=== PATIENT | male | born 1945 | race Caucasian/White ===

== ENCOUNTER → 2016-05-18 | Outpatient (CLI) | payer MEDICARE ==
[~2016-05-18] MED LIST: 00186-0370-20 IH; ACCOLATE 220 MG/1 TA PO; ALBUTEROL SULFAT3 M3 IH; ALBUTEROL0.63 MG/3 IH; ALLEGRA-D 12 HO1 TER PO; AMLODIPINE10 MG PO; AMOXICILLIN 8751 TAB PO; BACTRIM DS 8001 TAB PO; CATAFLAM50 MG PO; CENTRUM SILVER1 CTB PO; CENTRUM SILVER1 TAB PO; CIPRO 250MG TA250 MG PO; CIPRO 500MG TA500 MG PO; COLACE 100100 MG/CAP PO; COMBIVENT INH14.7 GM IH; DARVOCET-N-101 UDTAB PO; DAZIDOX10 MG PO; DETROL LA4 PO; DICLOFENAC SOD50 MG PO; DITROPAN 5MG TAB5 MG PO; DOXYCYCLINE 10100 MG PO; DULCOLAX S10 MG/SUPP RC; ERY-TAB500 MG PO; FERROUS SULFATE65 MG PO; FLEXERIL 1010 MG/TAB PO; FLEXERIL10 MG PO; FLOMAX 0.40.4 MG/CAP PO; FLUTICASON0.05 MG/Ac NS; GLUCOSAMINE/CHONDROI; HYTRIN 5MG C5 MG/CAP PO; LASIX 40MG TABL40 MG PO; LISINOPRIL20 MG PO; MAGNESIUM200 MG PO; MILK OF MA400 MG/52 PO; MS CONTIN 115 MG/TAB PO; MUCUS RELIEF400 M1 PO; MULTIPLE VITAMI1 CAP PO; MULTIVITAMIN FO1 CAP PO; NEURONTIN600 MG/TAB PO; NORCO 325 MG-51 TAB PO; NORVASC 10MG10 MG PO; NORVASC10 MG PO; OMEPRAZOLE DR20 MG PO; PERCOCET 325 MG1 TA2 PO; PERCOCET 325 MG1 TA3 PO; PREDNISONE10 MG PO; PREDNISONE20 M1 PO; PREDNISONE20 MG PO; PRILOSEC 20MG20 MG PO; PRILOTC PO; PRINIVIL20 MG PO; QUININE SULFAT324 MG PO; RT ALBUTER2.5 MG/0.5 IH; SENOKOT S 50 MG1 TAB PO; ST. JOSEPH81 M2 PO; SYNTHROID0.05 MG/TA PO; TERAZOSIN HCL; TERAZOSIN HCL PO; TERAZOSIN5 MG PO; ULTRAM 50MG TAB50 MG PO; VALIUM 5MG T5 MG/TAB PO; VENTOLIN0.09 MG IH; VESICARE; VESICARE 5MG5 MG PO; VESICARE5 MG PO; VITAMIN B-6100 MG PO; VITAMIN C500 MG PO; VITAMIN D32000 IU PO; VITAMINS; VITRON-C; VITRON-C PO; VOLTAREN 50MG T50 MG PO; VOLTAREN50 MG PO; XOPENEX HF0.045 MG/A IH; ZAFIRLUKAST20 MG PO; ZESTRIL 20MG TA20 MG PO; ZESTRIL40 MG PO; ZYLOPRIM 100MG100 MG PO
== END ==
LOC: WCC 08:44
DX: I87.2 Venous insufficiency (chronic) (peripheral) (principal); L97.519 Non-pressure chronic ulcer of other part of right foot with unspecified severity

== ENCOUNTER → 2016-05-25 | Outpatient (CLI) | payer MEDICARE | LOC: WCC 09:49 | DX: I87.8 Other specified disorders of veins (principal); L97.809 Non-pressure chronic ulcer of other part of unspecified lower leg with unspecified severity | CPT/HCPCS: G0463 ==

== ENCOUNTER → 2016-06-01 | Outpatient (CLI) | payer MEDICARE | LOC: WCC 10:17 | DX: I87.8 Other specified disorders of veins (principal); L97.519 Non-pressure chronic ulcer of other part of right foot with unspecified severity | CPT/HCPCS: G0463 ==

== ENCOUNTER → 2016-06-08 | Outpatient (CLI) | payer MEDICARE | LOC: WCC 12:49 | DX: I87.8 Other specified disorders of veins (principal) | CPT/HCPCS: 13919; G0463 ==

== ENCOUNTER → 2016-06-15 | Outpatient (CLI) | payer MEDICARE | LOC: WCC 11:15 | DX: I87.8 Other specified disorders of veins (principal); L97.519 Non-pressure chronic ulcer of other part of right foot with unspecified severity | CPT/HCPCS: 13919; G0463 ==

== ENCOUNTER → 2016-06-22 | Outpatient (CLI) | payer MEDICARE | LOC: WCC 08:17 | DX: I87.8 Other specified disorders of veins (principal); L97.819 Non-pressure chronic ulcer of other part of right lower leg with unspecified severity | CPT/HCPCS: 13919; 21064; A6021; G0463 ==

== ENCOUNTER → 2016-06-29 | Outpatient (CLI) | payer MEDICARE | LOC: WCC 08:20 | DX: I87.8 Other specified disorders of veins (principal); L97.919 Non-pressure chronic ulcer of unspecified part of right lower leg with unspecified severity; E66.9 Obesity, unspecified | CPT/HCPCS: G0463 ==

== ENCOUNTER → 2016-07-06 | Outpatient (CLI) | payer MEDICARE | LOC: WCC 08:49 | DX: I87.8 Other specified disorders of veins (principal); L97.919 Non-pressure chronic ulcer of unspecified part of right lower leg with unspecified severity | CPT/HCPCS: G0463 ==

== ENCOUNTER → 2016-07-13 | Outpatient (CLI) | payer MEDICARE | LOC: WCC 08:39 | DX: I87.2 Venous insufficiency (chronic) (peripheral) (principal); L97.919 Non-pressure chronic ulcer of unspecified part of right lower leg with unspecified severity | CPT/HCPCS: G0463 ==

== ENCOUNTER → 2016-07-20 | Outpatient (CLI) | payer MEDICARE | LOC: WCC 11:27 | DX: I87.2 Venous insufficiency (chronic) (peripheral) (principal); L97.919 Non-pressure chronic ulcer of unspecified part of right lower leg with unspecified severity; E66.9 Obesity, unspecified | CPT/HCPCS: 13919; 27510; A6197; G0463 ==

== ENCOUNTER → 2016-07-27 | Outpatient (CLI) | payer MEDICARE | LOC: WCC 08:50 | DX: I87.2 Venous insufficiency (chronic) (peripheral) (principal); L98.499 Non-pressure chronic ulcer of skin of other sites with unspecified severity | CPT/HCPCS: 13919; G0463 ==

== ENCOUNTER → 2016-08-03 | Outpatient (CLI) | payer MEDICARE | LOC: ZCOL.LAB 17:37 | DX: Z02.89 Encounter for other administrative examinations (principal) ==

== ENCOUNTER → 2016-08-03 | Outpatient (CLI) | payer MEDICARE | LOC: WCC 08:41 | DX: L97.919 Non-pressure chronic ulcer of unspecified part of right lower leg with unspecified severity (principal); I87.2 Venous insufficiency (chronic) (peripheral) | CPT/HCPCS: 13919; 27510; A6197; G0463 ==

== ENCOUNTER → 2016-08-07 | Outpatient (CLI) | payer MEDICARE | LOC: WCC 08:58 | DX: L97.919 Non-pressure chronic ulcer of unspecified part of right lower leg with unspecified severity (principal); I87.2 Venous insufficiency (chronic) (peripheral) | CPT/HCPCS: 13919; 13973; A6199; G0463 ==

== ENCOUNTER → 2016-08-17 | Outpatient (CLI) | payer MEDICARE | LOC: WCC 10:11 | DX: I87.2 Venous insufficiency (chronic) (peripheral) (principal); L97.909 Non-pressure chronic ulcer of unspecified part of unspecified lower leg with unspecified severity | CPT/HCPCS: 13919; 27510; A6197; G0463 ==

== ENCOUNTER → 2016-08-24 | Outpatient (CLI) | payer MEDICARE | LOC: WCC 12:21 | DX: I87.2 Venous insufficiency (chronic) (peripheral) (principal); L97.819 Non-pressure chronic ulcer of other part of right lower leg with unspecified severity; Z87.891 Personal history of nicotine dependence | CPT/HCPCS: 13919; 27510; 27517; A6197; A6207; G0463 ==

== ENCOUNTER → 2016-08-31 | Outpatient (CLI) | payer MEDICARE | LOC: WCC 09:36 | DX: I87.2 Venous insufficiency (chronic) (peripheral) (principal); L97.819 Non-pressure chronic ulcer of other part of right lower leg with unspecified severity; E66.9 Obesity, unspecified; Z87.891 Personal history of nicotine dependence | CPT/HCPCS: 13919; G0463 ==

== ENCOUNTER → 2016-09-07 | Outpatient (CLI) | payer MEDICARE | LOC: WCC 09:19 | DX: I87.2 Venous insufficiency (chronic) (peripheral) (principal); L97.819 Non-pressure chronic ulcer of other part of right lower leg with unspecified severity | CPT/HCPCS: 13919; G0463 ==

== ENCOUNTER 2016-09-10 10:01 | Outpatient (RCR) | payer MEDICARE ==
[~2016-09-10] VITALS: Ht 162.6 cm; Wt 109.0 kg
[2016-09-10 10:15] VITALS: BP 120/70; PULSE 72; TEMP 98
[2016-09-17 10:12] VITALS: BP 118/72; PULSE 77; TEMP 97.6
[2016-09-24 10:34] VITALS: BP 112/70; PULSE 102; TEMP 97.8
[2016-10-01 10:50] VITALS: BP 110/70; PULSE 79; TEMP 97.2
== END 2016-12-09 ==
LOC: WCC → EUO 10:01
DX: I87.2 Venous insufficiency (chronic) (peripheral) (principal)

== ENCOUNTER → 2016-10-09 | Outpatient (CLI) | payer MEDICARE | LOC: WCC 09:28 | DX: I87.311 Chronic venous hypertension (idiopathic) with ulcer of right lower extremity (principal); E66.9 Obesity, unspecified; Z87.891 Personal history of nicotine dependence | CPT/HCPCS: 13919; G0463 ==

== ENCOUNTER → 2016-10-16 | Outpatient (CLI) | payer MEDICARE | LOC: WCC 09:05 | DX: I87.2 Venous insufficiency (chronic) (peripheral) (principal); L97.819 Non-pressure chronic ulcer of other part of right lower leg with unspecified severity; L97.829 Non-pressure chronic ulcer of other part of left lower leg with unspecified severity; E66.9 Obesity, unspecified | CPT/HCPCS: 13919; 17717; A6212; G0463 ==

== ENCOUNTER → 2016-10-23 | Outpatient (CLI) | payer MEDICARE | LOC: WCC 10:01 | DX: I87.2 Venous insufficiency (chronic) (peripheral) (principal); L97.829 Non-pressure chronic ulcer of other part of left lower leg with unspecified severity; L97.819 Non-pressure chronic ulcer of other part of right lower leg with unspecified severity | CPT/HCPCS: 13919 ==

== ENCOUNTER → 2016-11-02 | Outpatient (CLI) | payer MEDICARE | LOC: WCC 12:50 | DX: I87.2 Venous insufficiency (chronic) (peripheral) (principal); I89.0 Lymphedema, not elsewhere classified; E66.9 Obesity, unspecified | CPT/HCPCS: G0463 ==

== ENCOUNTER → 2016-11-19 | Outpatient (CLI) | payer MEDICARE | LOC: WCC 14:28 | DX: L97.819 Non-pressure chronic ulcer of other part of right lower leg with unspecified severity (principal); I87.2 Venous insufficiency (chronic) (peripheral) | CPT/HCPCS: 13919; 18867; 27513; 27517; A6207; A6209; A6456; G0463 ==

== ENCOUNTER → 2016-11-27 | Outpatient (CLI) | payer MEDICARE | LOC: WCC 11:27 | DX: Z01.89 Encounter for other specified special examinations (principal) ==

== ENCOUNTER 2016-12-24 09:30 | Outpatient (RCR) | payer MEDICARE | END 2016-12-25 16:31 | LOC: WSPT 09:30 | DX: I89.0 Lymphedema, not elsewhere classified (principal); I87.2 Venous insufficiency (chronic) (peripheral); L97.819 Non-pressure chronic ulcer of other part of right lower leg with unspecified severity | CPT/HCPCS: G8978-GP; G8979-GP; G8980-GP ==

== ENCOUNTER 2018-06-27 17:53 | Emergency (ER) | payer MEDICARE ==
[~2018-06-27] VITALS: Ht 170.2 cm; Wt 113.6 kg
[~2018-06-27 17:53] MED LIST changes: +LEVAQUIN 5500 MG/TA1 PO; +MYRBETR50MG PO; +TEGRETOL 1100 MG/TAB PO
[2018-06-27 18:05] VITALS: TEMP 98.1
[2018-06-27 20:25] LABS: COLLECTION METHOD CLEAN CATCH
[2018-06-27 20:30] LABS: BASO % 0.4 % (0.0-2.0); EOS % 0.2 % (0-4.0); GRAN # 9.1 (1.4-6.5); HEMATOCRIT 49.2 % (42.0-52.0); HEMOGLOBIN 16.2 g/dl (13.5-18.0); LYMPH # 1.3 (1.2-3.4); LYMPH % 11.9 % (20.0-51.0); MEAN CELL VOLUME 86 fl (80.0-100.0); MEAN CORPUSCULAR HEMOGLOBIN 28 pg (27.0-31.0); MEAN CORPUSCULAR HGB CONC 33 g/dl (33.0-37.0); MEAN PLATELET VOLUME 10.6 fl (7.4-10.4); MONO # 0.4 (0.1-0.6); MONO % 3.2 % (1.7-9.3); PLATELET COUNT 331 K/mm3 (130-400); RED BLOOD COUNT 5.74 M/mm3 (4.20-5.60); REDCELL DISTRIBUTION WIDTH-CV 14.7 % (11.5-14.5)
[2018-06-27 20:34] LABS: PH 7 (5-8); SQUAMOUS EPITHELIAL None Seen /hpf; URINE APPEARANCE Clear; URINE BACTERIA None Seen /hpf; URINE BILIRUBIN Negative (NEGATIVE); URINE BLOOD Negative (NEGATIVE); URINE COLOR Yellow; URINE GLUCOSE Negative (NEGATIVE); URINE KETONE 1+ (NEGATIVE); URINE LEUKOCYTE ESTERASE Negative (NEGATIVE); URINE NITRATE Negative (NEGATIVE); URINE PROTEIN(semi-quant) Negative (NEGATIVE); URINE RBC 0-2 /hpf; URINE UROBILINOGEN Negative (NEGATIVE)
[2018-06-27 20:43] LABS: ALANINE AMINOTRANSFERASE 36 U/L (21-72); ALBUMIN 4.1 gm/dL (3.5-5.0); ALKALINE PHOSPHATASE 121 U/L (50-136); ANION GAP 10 mmol/L (7-16); AST,SGOT 37 U/L (15-37); BILIRUBIN,TOTAL 0.9 mg/dL (0.0-1.0); BLOOD UREA NITROGEN 17 mg/dL (9-20); CALCIUM 9.7 mg/dL (8.4-10.2); CARBON DIOXIDE 25 mmol/L (22-30); CHLORIDE 105 mmol/L (98-107); CREATININE, serum 0.98 mg/dL (0.66-1.25); GLUCOSE 113 mg/dL (74-106); LIPASE 23 U/L (23-300); POTASSIUM 4.6 mmol/L (3.4-5.0); SODIUM 140 mmol/L (137-145); TOTAL PROTEIN 7.5 gm/dL (6.4-8.2)
[2018-06-27 20:55] LABS: TROPONIN-I < 0.012 ng/mL (0.000-0.035)
[2018-06-27 23:40] VITALS: BP 113/61; PULSE 82
== END 2018-06-27 23:40 | disposition home or self-care (01) ==
LOC: COL.ER 17:53
PROVIDERS: Emergency Medicine
DX: K46.0 Unspecified abdominal hernia with obstruction, without gangrene (principal); K56.609 Unspecified intestinal obstruction, unspecified as to partial versus complete obstruction; J44.9 Chronic obstructive pulmonary disease, unspecified; I12.9 Hypertensive chronic kidney disease with stage 1 through stage 4 chronic kidney disease, or unspecified chronic kidney disease; N18.9 Chronic kidney disease, unspecified; E03.9 Hypothyroidism, unspecified; Z98.84 Bariatric surgery status; Z98.890 Other specified postprocedural states; Z90.49 Acquired absence of other specified parts of digestive tract; Z90.89 Acquired absence of other organs
CPT/HCPCS: J2270; J2405; J3010

== ENCOUNTER 2020-01-15 07:20 | Emergency (ER) | payer MEDICARE ==
[~2020-01-15] VITALS: Ht 170.2 cm; Wt 137.7 kg
[2020-01-15 07:39] VITALS: TEMP 98.3
[2020-01-15] MEDS ORDERED: PREDNISONE20 MG PO (11:10)
--- NOTE | 2020-01-15 11:22 | NUR ---
Terminal Operator met with the patient. The patient states he is independent and drove himself to the ED and will drive himself home. The patient's PCP is Dr. Driscoll. He lives with his son-in-law, daughter, and grandson. His daughter is currently staying in [place] with her mother and sister. The patient has no concerns about discharging home from the ED. KESHA collaborated the above information with the ED PA.
[2020-01-15 11:48] VITALS: BP 132/87; PULSE 93
== END 2020-01-15 11:49 | disposition home or self-care (01) ==
LOC: COL.ER 07:20
DX: M25.521 Pain in right elbow (principal); J45.901 Unspecified asthma with (acute) exacerbation; K21.9 Gastro-esophageal reflux disease without esophagitis; Z90.49 Acquired absence of other specified parts of digestive tract; Z98.84 Bariatric surgery status; Z98.61 Coronary angioplasty status; Z79.01 Long term (current) use of anticoagulants; Z79.899 Other long term (current) drug therapy

== ENCOUNTER → 2020-04-09 | Outpatient (CLI) | payer MEDICARE | LOC: COL.RAD 13:35 | DX: N26.1 Atrophy of kidney (terminal) (principal); N28.1 Cyst of kidney, acquired ==